=== PATIENT | male | born 1980 | race Caucasian/White ===

== ENCOUNTER 2017-02-21 10:49 | Emergency (ER) | payer MEDICAID ==
[~2017-02-21 10:49] MED LIST: Ketorolac TAB * 10 MG TAB PO SCH
[2017-02-21 10:52] VITALS: BP 138/76
[2017-02-21] MEDS ORDERED: Ketorolac INJ* 60 MG/2 ML VIAL IM ONE (12:21)
[2017-02-21] MEDS ORDERED: Clindamycin CAP* 150 MG PO ONE (12:21)
[2017-02-21] MEDS ORDERED: Ketorolac TAB * 10 MG TAB PO PRN ×2 (12:34→12:37)
--- NOTE | 2017-02-21 12:40 | ED ---
Throat Pain/Nasal Congestion - HPI Summary HPI Summary: Pt here w/ Rt lower jaw pain x 5 days. Worse past 2. Has dental carries here which he believes are triggering his pain. Denies fever, chills, N/V, dyspnea, dysphagia. Pain is worse w/ eating/drinking. Possible d/c from area? Has been taking OTC pain meds w/ minimal relief. - History of Current Complaint Chief Complaint: EDDentalPain Time Seen by Provider: 02/21/17 12:01 Hx Obtained From: Patient - Allergies/Home Medications Allergies/Adverse Reactions: Allergies Allergy/AdvReac Type Severity Reaction Status Date / Time Cefaclor [From [facility]] Allergy Unknown Verified 02/21/17 11:17 Reaction Details PMH/Surg Hx/FS Hx/Imm Hx Previously Healthy: Yes Endocrine/Hematology History: Denies: Hx Anticoagulant Therapy, Hx Blood Disorders Infectious Disease History: No Infectious Disease History: Denies: Traveled Outside the [place] in Last 30 Days - Social History Alcohol Use: Occasionally Hx Substance Use: No Substance Use Type: Reports: None Hx Tobacco Use: Yes Smoking Status (MU): Current Every Day Smoker Review of Systems Constitutional: Negative ENT: Other - see HPI Cardiovascular: Negative Respiratory: Negative Positive: Abdominal Pain Positive: no symptoms reported Musculoskeletal: Negative Skin: Negative Neurological: Negative Psychological: Normal All Other Systems Reviewed And Are Negative: Yes Physical Exam Triage Information Reviewed: Yes Vital Signs On Initial Exam: Initial Vitals Temp Pulse Resp BP Pulse Ox 98.4 F 88 20 138/76 99 02/21/17 10:51 02/21/17 10:51 02/21/17 10:51 02/21/17 10:51 02/21/17 10:51 Vital Signs Reviewed: Yes Appearance: Positive: Well-Appearing, Well-Nourished, Pain Distress - mild to moderate Skin: Positive: Warm, Dry Head/Face: Positive: Normal Head/Face Inspection - NTTP Eyes: Positive: Normal, EOMI, Conjunctiva Clear ENT: Positive: Pharynx normal - mucosa moist - no lesions Dental: Positive: Dental Fracture @ - #30 - posterior edge of tooth missing - tooth is TTP and gingiva along lingual aspect - no edema, no d/c, no erythema observed Neck: Positive: Supple, Nontender, No Lymphadenopathy Respiratory/Lung Sounds: Positive: Breath Sounds Present Cardiovascular: Positive: Normal Musculoskeletal: Positive: Normal, Strength/ROM Intact Neurological: Positive: Normal, Sensory/Motor Intact, Alert, Oriented to Person Place, Time, CN Intact II-III Psychiatric: Positive: Normal Diagnostics - Vital Signs Vital Signs Temp Pulse Resp BP Pulse Ox 02/21/17 11:15 98.4 F 88 20 138/76 99 02/21/17 10:51 98.4 F 88 20 138/76 99 - Laboratory Lab Statement: Any lab studies that have been ordered have been reviewed, and results considered in the medical decision making process. EENT Course/Dx - Diagnoses Provider Diagnoses: Dental abscess Discharge - Discharge Plan Condition: Stable Disposition: HOME Prescriptions: Clindamycin CAP* [Clindamycin CAP 150 MG CAP*] 300 mg PO Q8HR #60 cap Ketorolac TAB * [Toradol TAB *] 10 mg PO Q6H #16 tab Probiotic Product [Probiotic] 1 tab PO Q8HR #60 tab Patient Education Materials: Dental Abscess (ED), Toothache (ED) Referrals: Luc CASEY,Joaquín Rogers [Primary Care Provider] - Additional Instructions: Follow-up with dentist as scheduled on Thursday *If you develop facial swelling with trouble breathing or swallowing, return to ED
[2017-02-21] MEDS ORDERED: Clindamycin CAP* 150 MG PO SCH (14:00)
== END 2017-02-21 13:23 | disposition home or self-care (01) ==
LOC: ED 10:49
DX: K04.7 Periapical abscess without sinus (principal); R10.9 Unspecified abdominal pain
CPT/HCPCS: 96372; 99282; A9270-GY; J1885